=== PATIENT | female | born 1990 | race Caucasian/White ===

== ENCOUNTER 2019-05-21 07:44 | Emergency (ER) | payer MEDICAID | END 2019-05-21 08:15 | disposition home or self-care (01) | LOC: BURERS 07:44 | DX: M54.6 Pain in thoracic spine (principal); F32.9 Major depressive disorder, single episode, unspecified; M41.9 Scoliosis, unspecified; Z79.899 Other long term (current) drug therapy | CPT/HCPCS: 99281 ==